=== PATIENT | female | born 1965 | race Caucasian/White ===

== ENCOUNTER → 2016-06-13 | Outpatient (CLI) | payer OTHER ==
[~2016-06-13] MED LIST: DIPH25TA4 PO; IBUP-1050 PO; NORE5TAB5 PO
--- NOTE | 2016-06-13 15:07 | MAMMOGRAPHY REPORT ---
BILATERAL DIGITAL SCREENING MAMMOGRAM TOMOSYNTHESIS WITH CAD: 06/13/2016 CLINICAL HISTORY: Routine screening. Patient has no complaints. TECHNIQUE: Breast tomosynthesis in addition to standard 2D mammography was performed. Current study was also evaluated with a Computer Aided Detection (CAD) system. COMPARISON: Comparison is made to exam dated: 03/25/2015 mammogram - [facility]. Prior outside mammograms dated 03/16/2014, 03/10/2013, 05/28/2011, 05/23/2009, 02/27/2008. BREAST COMPOSITION: The tissue of both breasts is heterogeneously dense, which may obscure small ma sses. FINDINGS: No suspicious masses, calcifications, or areas of architectural distortion are noted in e ither breast. There has been no significant interval change compared to prior exams. Asymmetries in the left superior breast are stable dating back to at least the 2007 and 2006 exams, and are theref ore benign and felt to represent normal fibroglandular tissue. IMPRESSION: ACR BI-RADS CATEGORY 2: BENIGN There is no mammographic evidence of malignancy. A 1 year screening mammogram is recommended. The p atient will receive written notification of the results. Approximately 10% of breast cancers are not detected with mammography. A negative mammographic repor t should not delay biopsy if a clinically suggestive mass is present. Nichol Sanchez M.D. /:06/13/2016 14:34:45 Claims Processor: Anastasia Lechuga, [facility] letter sent: Normal 1/2 BI-RADS Code: ACR BI-RADS Category 2: Benign
== END | disposition home or self-care (01) ==
LOC: C.MAMM 14:06
PROVIDERS: ATTEND Internal Medicine
DX: Z12.31 Encounter for screening mammogram for malignant neoplasm of breast (principal)

== ENCOUNTER → 2016-07-20 | Outpatient (CLI) | payer OTHER ==
[2016-07-20 09:39] LABS: BASO % 2.3 %; BASO ABS # 0.07 K/uL (0-0.2); COMPLETE YES; EOS % 4.3 %; HEMATOCRIT 38.3 % (37-47); LYMPH % 43.7 %; LYMPH ABS # 1.32 K/uL (1.2-3.4); MEAN CELL VOLUME 92.3 fL (80-100); MEAN CORPUSCULAR HEMOGLOBIN 32.3 pg (25-34); MEAN PLATELET VOLUME 11.3 fL (7.4-10.4); MONO % 9.6 %; NEUT % 40.1 %; PLATELET COUNT 238 K/uL (130-400); RED BLOOD COUNT 4.15 M/uL (4.2-5.4); WHITE BLOOD COUNT 3.02 K/uL (4.8-10.8)
[2016-07-20 10:11] LABS: ALB/GLOB RATIO 1.4 (0.9-2); ALT/SGPT 22 U/L (12-78); AST/SGOT 25 U/L (15-37); BLOOD UREA NITROGEN 14 mg/dl (7-18); BUN/CREATININE RATIO 16.8 (10-20); CALCIUM 9.6 mg/dl (8.5-10.1); CARBON DIOXIDE 28 mmol/L (21-32); CHLORIDE 104 mmol/L (98-107); CREATININE 0.85 mg/dl (0.60-1.20); GLUCOSE 82 mg/dl (70-99); POTASSIUM 4.1 mmol/L (3.5-5.1); SODIUM 139 mmol/L (136-145)
[2016-07-20 10:12] LABS: ALKALINE PHOSPHATASE 57 U/L (45-117); CHOLESTEROL 215 mg/dl (0-200); CHOLESTEROL/HDL RATIO 1.9; HDL CHOLESTEROL 111 mg/dl; LDL CHOLESTEROL CALCULATED 97 mg/dl; TRIGLYCERIDES 36 mg/dl (0-150); VERY LOW DENSITY LIPOPROT CALC 7 mg/dl
== END | disposition home or self-care (01) ==
LOC: C.LAB 07:01
PROVIDERS: ATTEND Internal Medicine
DX: R43.2 Parageusia (principal); Z13.220 Encounter for screening for lipoid disorders; R43.8 Other disturbances of smell and taste

== ENCOUNTER 2016-11-19 12:40 | Emergency (ER) | payer OTHER ==
[~2016-11-19] VITALS: Ht 165.1 cm; Wt 72.0 kg
[2016-11-19 12:51] VITALS: Ht 165.1 cm; Wt 72.0 kg
[2016-11-19] MEDS ORDERED: SODIUM CHLORIDE 0.9% 1000ML 1,000 ML IV STA (13:15)
[2016-11-19 13:48] LABS: BASO % 0.6 %; BASO ABS # 0.03 K/uL (0-0.2); COMPLETE YES; EOS % 1.7 %; HEMATOCRIT 34.9 % (37-47); IG% 0.2 %; LYMPH % 31.1 %; LYMPH ABS # 1.61 K/uL (1.2-3.4); MEAN CELL VOLUME 92.3 fL (80-100); MEAN CORPUSCULAR HEMOGLOBIN 30.7 pg (25-34); MEAN CORPUSCULAR HGB CONC 33.2 g/dl (32-36); MEAN PLATELET VOLUME 10.2 fL (7.4-10.4); MONO % 10.1 %; NEUT % 56.3 %; PLATELET COUNT 218 K/uL (130-400); RED BLOOD COUNT 3.78 M/uL (4.2-5.4); WHITE BLOOD COUNT 5.17 K/uL (4.8-10.8)
--- NOTE | 2016-11-19 13:51 | EMERGENCY ROOM VISIT NOTE ---
History First contact with patient: 12:59 Chief Complaint: VAGINAL BLEEDING Stated Complaint: HEAVY MENSTRUAL BLEEDING History of Present Illness The patient is a 51 year old female who presents to the Emergency Room with complaints of heavy vaginal bleeding. The patient states that she has had vaginal bleeding for the past 2 days which became heavier last night into this morning. She states that she thought she had completed menopause, as she has not had vaginal bleeding for 2 years. She does report having a light period last month, but this is the first bleeding she has had in 2 years. That lasted for 5-6 days. She states that she has been using tampons and pads and has been changing the pad almost every 15 minutes. She denies any abdominal pain/ cramping, urinary symptoms, lightheadedness or dizziness. She does not take any blood thinners. She denies any significant NEUROPSYCHOLOGY DIRECTOR history other than C- sections. She denies any family history of bleeding disorders but does report a family history of clotting disorder in her aunt. She states that she believes her mother has factor V Leiden trait. She typically sees Brooke Bazan [employer] [facility]. She called them today and was sent here for evaluation. Review of Systems A complete 10 point review of systems was reviewed with the patient with pertinent positives and negatives as per history of present illness. All else were negative. Social History Smoking Status: Never Smoker Current/Historical Medications Scheduled Norethindrone (Aygestin), 5 MG PO UD Physical Exam Vital Signs Date Time Temp Pulse Resp B/P (MAP) Pulse Ox O2 Delivery O2 Flow Rate FiO2 11/19/16 16:26 36.7 56 16 123/78 100 11/19/16 16:18 56 16 123/78 100 Room Air 11/19/16 15:35 36.7 56 16 130/70 100 Room Air 11/19/16 14:08 65 18 137/78 100 Room Air 11/19/16 12:51 36.7 73 18 134/73 100 Physical Exam VITALS: Vitals are noted on the nurse's note and reviewed by myself. Vital signs stable. GENERAL: This is a 51-year-old male, in no acute distress, nondiaphoretic, well- developed well-nourished. SKIN: The skin was normal in color without significant pallor. MOUTH: Mucous membranes moist. HEART: Regular rate and rhythm without murmurs gallops or rubs. LUNGS: Clear to auscultation bilaterally without wheezes, rales or rhonchi. ABDOMEN: Positive bowel sounds x 4. Soft, nontender to palpation. PELVIC: External genitalia unremarkable. There is a moderate amount of bleeding from the cervical os. No destructive lesions visualized. NEURO: Patient was alert and oriented to person place and time. Medical Decision & Procedures ER Provider Diagnostic Interpretation: PELVIC COMPLETE NON OB IMPRESSION: 1. Multiple uterine leiomyomas, most of which appear intramural. There is at least one however that appears submucosal. 2. Endometrium measures 1.0 cm, thickened in a postmenopausal patient. This can be correlated with tissue sampling. 3. Septated cystic lesions of the bilateral ovaries, largest on the right measuring up to 5.9 cm is seen without evidence of ovarian torsion. Follow-up is recommended to exclude epithelial neoplasm. Laboratory Results 11/19/16 13:30 Red Blood Count 3.78, Mean Corpuscular Volume 92.3, Mean Corpuscular Hemoglobin 30.7, Mean Corpuscular Hemoglobin Concent 33.2, Mean Platelet Volume 10.2, Neutrophils (%) (Auto) 56.3, Lymphocytes (%) (Auto) 31.1, Monocytes (%) (Auto) 10.1, Eosinophils (%) (Auto) 1.7, Basophils (%) (Auto) 0.6, Neutrophils # (Auto ) 2.91, Lymphocytes # (Auto) 1.61, Monocytes # (Auto) 0.52, Eosinophils # (Auto ) 0.09, Basophils # (Auto) 0.03 11/19/16 13:30 Test 11/19/16 13:30 White Blood Count 5.17 K/uL (4.8-10.8) Red Blood Count 3.78 M/uL (4.2-5.4) Hemoglobin 11.6 g/dL (12.0-16.0) Hematocrit 34.9 % (37-47) Mean Corpuscular Volume 92.3 fL (80-100) Mean Corpuscular Hemoglobin 30.7 pg (25-34) Mean Corpuscular Hemoglobin Concent 33.2 g/dl (32-36) Platelet Count 218 K/uL (130-400) Mean Platelet Volume 10.2 fL (7.4-10.4) Neutrophils (%) (Auto) 56.3 % Lymphocytes (%) (Auto) 31.1 % Monocytes (%) (Auto) 10.1 % Eosinophils (%) (Auto) 1.7 % Basophils (%) (Auto) 0.6 % Neutrophils # (Auto) 2.91 K/uL (1.4-6.5) Lymphocytes # (Auto) 1.61 K/uL (1.2-3.4) Monocytes # (Auto) 0.52 K/uL (0.11-0.59) Eosinophils # (Auto) 0.09 K/uL (0-0.5) Basophils # (Auto) 0.03 K/uL (0-0.2) RDW Standard Deviation 42.6 fL (36.4-46.3) RDW Coefficient of Variation 12.6 % (11.5-14.5) Immature Granulocyte % (Auto) 0.2 % Immature Granulocyte # (Auto) 0.01 K/uL (0.00-0.02) Prothrombin Time 11.1 SECONDS (9.0-12.0) Prothromb Time International Ratio 1.0 (0.9-1.1) Activated Partial Thromboplast Time 29.6 SECONDS (21.0-31.0) Partial Thromboplastin Ratio 1.1 Anion Gap 7.0 mmol/L (3-11) Est Creatinine Clear Calc Drug Dose 82.7 ml/min Estimated GFR () 98.9 Estimated GFR (Non- 85.4 BUN/Creatinine Ratio 21.9 (10-20) Calcium Level 9.1 mg/dl (8.5-10.1) Thyroid Stimulating Hormone (TSH) 1.420 uIu/ml (0.300-4.500) Human Chorionic Gonadotropin, Qual NEG (NEG) ED Course The patient was evaluated as above. Labs were drawn and IV access was obtained. Pelvic ultrasound was performed and read by radiology as above. Patient was reevaluated and findings were discussed. Case was discussed with Dr. Caba of [employer]SP[employer] EQU[employer]MENT [employer]. She recommended an Aygestin taper. Discharge instructions were reviewed with the patient. The patient verbalized understanding of my assessment and treatment plan and was discharged home in good condition. Medical Decision Differential diagnosis includes bleeding disorder, fibroids, menopause, among others. The patient is a 51-year-old female who presents today complaining of heavy vaginal bleeding. Pelvic exam did show a moderate amount of bleeding. Patient is not anemic. Coags are normal. Pelvic ultrasound did show multiple fibroids as well as possible ovarian cysts and a thickened endometrium. Case was discussed with Dr. Caba of [facility]QUIP[facility], who recommended an Aygestin taper. The patient will follow-up with TRANSPORTATION EQUIPMENT PAINTER in the office. She verbalized understanding of my assessment and treatment plan and was discharged home in good condition. She was instructed to return here for any worsening of her current condition or new/concerning symptoms. Medication Reconcilliation Current Medication List: was personally reviewed by me Blood Pressure Screening Patient's blood pressure: Normal blood pressure Impression Primary Impression: Abnormal vaginal bleeding Departure Information Dispostion Home / Self-Care Condition GOOD Prescriptions Norethindrone (Aygestin) 5 Mg Tab 5 MG PO UD, #10 TAB 10 mg 2 days, 7.5 mg 2 days, 5 mg 2 days, 2.5 mg 2 days. Prov: Patricia Cuevas ., MARINA 11/19/16 Referrals RV. Zuñiga MD (PCP) Patient Instructions My [facility] Additional Instructions Aygestin as prescribed. You will be taking 2 tablets daily for 2 days, 1.5 tablets daily for 2 days, 1 tablet daily for 2 days, then 0.5 tablet for 2 days. This will stop the vaginal bleeding. However, when you finish this medication you may begin to bleed lightly again. Follow-up with TRANSPORTATION EQUIPMENT PAINTER in the office. Return here for lightheadedness, dizziness, passing out, heavier bleeding or any other new/concerning symptoms.
[2016-11-19 14:00] LABS: PARTIAL THROMBOPLASTIN RATIO 1.1; PROTHROMBIN TIME (PATIENT) 11.1 SECONDS (9.0-12.0)
[2016-11-19 14:04] LABS: BUN/CREATININE RATIO 21.9 (10-20); CALCIUM 9.1 mg/dl (8.5-10.1); CREATININE 0.8 mg/dl (0.60-1.20); POTASSIUM 3.6 mmol/L (3.5-5.1)
[2016-11-19 14:14] LABS: THYROID STIMULATING HORMONE 1.42 uIu/ml (0.300-4.500)
[2016-11-19 14:30] LABS: PREG INTERNAL NEGATIVE QC NEG CLEAR BACKGROUND; PREG INTERNAL POSITIVE QC POS CONTROL LINE
--- NOTE | 2016-11-19 15:46 | DIAGNOSTIC IMAGING REPORT ---
PELVIC COMPLETE NON OB HISTORY: 51 years-old Female acute heavy vaginal bleeding . The patient is postmenopausal. History of prior . COMPARISON: None available TECHNIQUE: Multiple real-time sonographic images of the deep pelvic structures were obtained transabdominally and transvaginally assessing grayscale appearance, color and spectral flow. FINDINGS: Transabdominal: Anteflexed uterus measures 12.1 x 5.9 x 7.5 cm. Endometrium measures 1.2 cm. There are several ill-defined hypoechoic structures involving uterus suggesting leiomyomas. One lesion is seen, 3.3 x 2.5 cm which may demonstrate submucosal component. Subserosal appearing lesion is seen, 2.2 x 2.5 cm. Additional similar appearing structure which appears intramural is seen within the region of the lower uterine segment, 2.2 x 3.0 x 2.5 cm. Cystic structure within the region of the right ovary is seen, 8.4 x 5.3 x 7.0 cm without internal vascularity. Arterial inflow and venous outflow is documented within the right ovary. Mildly complex cystic-appearing structures also seen within the left ovary, 3.3 x 4.5 x 4.6 cm . Arterial and flow venous outflow was documented within the left ovary. Transvaginal: Uterus measures 10.2 x 5.7 x 7.3 cm. Endometrium measures 1.0 cm without definite mass. Nabothian cysts are noted. scar is seen. Multiple fibroids are seen including intramural fibroid measuring 2.8 x 2.8 cm near the fundus. Posterior fundal uterus lateral myoma measures 2.7 x 2.5 cm which appears intramural. Large cystic lesion of the right adnexum is seen containing internal debris, 5.9 x 5.2 x 5.0 cm. No definite flow or mural nodularity seen within the cystic lesion, however there are some thin internal septations. Right ovary measures 6.5 x 6.3 x 5.7 cm. Left ovary measures 4.8 x 4.2 x 4.0 cm. Septated cystic lesion within the left ovary are seen, 4.1 x 3.7 x 3.47 m. Arterial inflow is documented within the left ovary. There is minimal free pelvic fluid, nonspecific. IMPRESSION: 1. Multiple uterine leiomyomas, most of which appear intramural. There is at least one however that appears submucosal. 2. Endometrium measures 1.0 cm, thickened in a postmenopausal patient. This can be correlated with tissue sampling. 3. Septated cystic lesions of the bilateral ovaries, largest on the right measuring up to 5.9 cm is seen without evidence of ovarian torsion. Follow-up is recommended to exclude epithelial neoplasm. The above report was generated using voice recognition software. It may contain grammatical, syntax or spelling errors. Electronically signed by: Ryan Shoemaker M.D. 11/19/2016 3:44 PM Dictated Date/Time: 11/19/2016 3:33 PM
[2016-11-19] MEDS ORDERED: NORE5TAB5 PO (16:19)
[2016-11-19 16:26] VITALS: BP 123/78; PULSE 56; TEMP 36.7; O2SAT 100
[2017-01-09] MEDS ORDERED: DIPH25TA4 PO (13:42)
[2017-01-09] MEDS ORDERED: IBUP-1050 PO (13:42)
== END 2016-11-19 16:24 | disposition home or self-care (01) ==
LOC: C.EDB 12:41 → C.EDC 16:24
DX: N93.9 Abnormal uterine and vaginal bleeding, unspecified (principal)

== ENCOUNTER → 2016-11-23 | Outpatient (CLI) | payer OTHER | END | disposition home or self-care (01) | LOC: C.LAB1850 15:37 | PROVIDERS: ATTEND Obstetrics & Gynecology | DX: N95.0 Postmenopausal bleeding (principal) ==

== ENCOUNTER → 2017-01-17 | Day surgery (SDC) | payer OTHER ==
[2017-01-02 11:22] VITALS: BMI 25.0
[~2017-01-17] VITALS: Ht 165.1 cm; Wt 70.5 kg
[~2017-01-17] MED LIST changes: +LIDOCAINE HCL 2% 2 ML VIAL (20MG/ML) ONE; +MIDAZOLAM HCL 1 MG/ML 2ML VIAL ONE; -NORE5TAB5 PO; +PROPOFOL IV EMULSION 10 MG/ML 20 ML VIAL IV ONE; +SODIUM CHLORIDE 0.9% 500ML 500 ML IV ONE
[2017-01-17 12:10] VITALS: Ht 165.1 cm; Wt 70.5 kg
--- NOTE | 2017-01-17 12:32 | Endo History and Physical ---
History & Physical Date of Service: Jan 17, 2017. Chief Complaint: SCREENING Referring Physician: DR MORA History of Present Illness 51 yo CF who presents for screening colonoscopy. Past Surgical History Hx Cardiac Surgery: No Hx Internal Defibrillator: No Hx Pacemaker: No Hx Abdominal Surgery: Yes ( X2) Hx of Implantable Prosthesis: No Hx Post-Op Nausea and Vomiting: Yes Hx Cancer Surgery: No Hx Thoracic Surgery: No Hx Orthopedic: No Hx Urinary Tract Surgery: No Family History IBD Social History Smoking Status: Never Smoker Hx Substance Use: No Hx Alcohol Use: Yes (OCCASIONAL) Allergies Coded Allergies: No Known Allergies (Unverified , 01/17/17) Current Medications Reported Home Medications Medications Dose Route/Sig Max Daily Dose Days Date Category Advil (Ibuprofen) 200 Mg Tab 200-600 Mg PO Q4H PRN 01/09/17 Reported Sominex (Diphenhydramine Hcl (Sleep)) 25 Mg Tab 0.5 Tab PO HS PRN 01/09/17 Reported Vital Signs Weight (Kilograms): 70.45 Height (Feet): 5 Height (Inches): 5 Date Time Temp Pulse Resp B/P (MAP) Pulse Ox O2 Delivery O2 Flow Rate FiO2 01/17/17 12:18 36.5 55 16 123/74 (90) 100 Room Air Physical Exam General Appearance: WD/WN, no apparent distress Respiratory/Chest: Auscultation: breath sounds normal Cardiovascular: Heart Auscultation: RRR Abdomen: Bowel Sounds: normal Inspection & Palpation: soft, non-distended, no tenderness, guarding & rebound Assessment and Plan Assessment: 51 yo CF who presents for screening colonoscopy. Plan: Proceed with colonoscopy.
--- NOTE | 2017-01-17 13:14 | Discharge Instructions ---
Endoscopy Patient Instructions Date / Procedure(s) Performed Jan 17, 2017. Colonoscopy Allergy Information Coded Allergies: No Known Allergies (Unverified , 01/17/17) Discharge Date / Findings Jan 17, 2017. Internal hemorrhoids Medication Instructions OK to resume all medications today as prescribed Reported Home Medications Medications Dose Route/Sig Max Daily Dose Days Date Category Advil (Ibuprofen) 200 Mg Tab 200-600 Mg PO Q4H PRN 01/09/17 Reported Sominex (Diphenhydramine Hcl (Sleep)) 25 Mg Tab 0.5 Tab PO HS PRN 01/09/17 Reported Provider Instructions Activity Restrictions - No exercising or heavy lifting for 24 hours. - Do not drink alcohol the day of the procedure. - Do not drive a car or operate machinery until the day after the procedure. - Do not make any important decisions or sign important papers in 24 hours after the procedure. Following Day: - Return to full activity which may include returning to work/school. Diet Start your diet with liquids and light foods (jello, soup, juice, toast). Then eat your usual diet if not nauseated. Treatment For Common After Affects For mild abdominal pain, bloating, or excessive gas: - Rest - Eat lightly - Lie on right side Follow-Up Information Follow-up with DR MORA as scheduled Anesthesia Information What You Should Know You have had a procedure that required some medicine to reduce anxiety and discomfort. This treatment is called moderate sedation. After receiving the treatment, you may be sleepy, but you will be able to breathe on your own. The effects of the treatment may last for several hours. Follow these instructions along with Activity/Diet recommendations noted above: * Do NOT do anything where dizziness or clumsiness would be dangerous. * Rest quietly at home today, then you can be up and about tomorrow. * Have a responsible person stay with you the rest of today. * You may have had an I.V. today. If so, you may take the dressing off later today. Recommendations Call your doctor if: * Trouble breathing * Continuous vomiting for more than 24 hours * Temperature above 101 degrees * Severe abdominal pain or bloating * Pain not relieved by pain medicine ordered * There is increased drainage or redness from any incision * A large amount of rectal bleeding greater than 2-3 tablespoons. (If you had a polyp/s removed or have hemorrhoids, a small amount of blood - from the rectum is to be expected.) * You have any unanswered questions or concerns. IN THE EVENT OF A SERIOUS EMERGENCY, GO TO THE NEAREST EMERGENCY ROOM Your discharge instructions were prepared by provider Rob Cid. Patient Instructions Signature Page Talia Louise Patient (or Guardian) Signature/Date: I have read and understand the instructions given to me by my caregivers. Caregiver/RN/Doctor Signature/Date: The above-named patient and/or guardian has received patient instructions on this date. + Original Patient Signature Page (only) stays with chart. Please make copy for patient.
--- NOTE | 2017-01-17 13:17 | Anesthesiology Progress Note ---
Anesthesia Post Op Note Date & Time Jan 17, 2017 at 13:17 Vital Signs Pain Intensity: 0 Vital Signs Past 12 Hours Date Time Temp Pulse Resp B/P (MAP) Pulse Ox O2 Delivery O2 Flow Rate FiO2 01/17/17 13:05 63 20 117/65 (82) 100 Room Air 01/17/17 12:18 36.5 55 16 123/74 (90) 100 Room Air Notes Mental Status: alert / awake / arousable, participated in evaluation Pt Amnestic to Procedure: Yes Nausea / Vomiting: adequately controlled Pain: adequately controlled Airway Patency, RR, SpO2: stable & adequate BP & HR: stable & adequate Hydration State: stable & adequate Anesthetic Complications: no major complications apparent
--- NOTE | 2017-01-17 13:21 | GI REPORT ---
Procedure Date: 01/17/2017 12:25 PM THIS REPORT HAS BEEN AMENDED Addendum Number: 1 Addendum Date: 01/17/2017 1:26:18 PM An error was made when placing findings on this exam: The only finding on this exam was non-bleeding internal hemorrhoids. There was no evidence of diverticulosis. There were no random colon biopsies or stool studies collected. A repeat colonoscopy should be performed in 10 years for surveillance purposes. Procedure: Colonoscopy Indications: Screening for colorectal malignant neoplasm Medicines: Monitored Anesthesia Care Complications: No immediate complications. Estimated Blood Loss: Estimated blood loss: none. Procedure: Pre-Anesthesia Assessment: - Prior to the procedure, a History and Physical was performed, and patient medications and allergies were reviewed. The patient's tolerance of previous anesthesia was also reviewed. The risks and benefits of the procedure and the sedation options and risks were discussed with the patient. All questions were answered, and informed consent was obtained. Prior Anticoagulants: The patient has taken no previous anticoagulant or antiplatelet agents. ASA Grade Assessment: II - A patient with mild systemic disease. After reviewing the risks and benefits, the patient was deemed in satisfactory condition to undergo the procedure. After I obtained informed consent, the scope was passed under direct vision. Throughout the procedure, the patient's blood pressure, pulse, and oxygen saturations were monitored continuously. The scope was introduced through the anus and advanced to the terminal ileum. The colonoscopy was performed without difficulty. The patient tolerated the procedure well. The quality of the bowel preparation was good. The terminal ileum, ileocecal valve, appendiceal orifice, and rectum were photographed. Findings: Multiple small-mouthed diverticula were found in the sigmoid colon. Non-bleeding internal hemorrhoids were found during retroflexion. The hemorrhoids were small. Several random biopsies were obtained with cold forceps for histology in the entire colon. Fluid aspiration for cytology was performed in the entire colon. Impression: - Diverticulosis in the sigmoid colon. - Non-bleeding internal hemorrhoids. - Several random biopsies were obtained in the entire colon. - Fluid aspiration was performed. Recommendation: - Resume previous diet. - Continue present medications. - Repeat colonoscopy for surveillance based on pathology results. - Return to primary care physician as previously scheduled. Rob Cid DO 01/17/2017 1:21:17 PM This report has been signed electronically. Note Initiated On: 01/17/2017 12:25 PM I attest to the content of the Intraoperative Record and orders documented therein, exceptions below Rob Cid, 01/17/2017 1:27:43 PM This report has been signed electronically.
[2017-01-17 13:35] VITALS: BP 145/71; PULSE 58; O2SAT 100
== END | disposition home or self-care (01) ==
LOC: C.GI 11:41
PROVIDERS: ATTEND Internal Medicine
DX: Z12.11 Encounter for screening for malignant neoplasm of colon (principal); K57.30 Diverticulosis of large intestine without perforation or abscess without bleeding; K64.8 Other hemorrhoids

== ENCOUNTER 2017-01-21 07:08 | Day surgery (SDC) | payer OTHER ==
[2017-01-09 13:28] VITALS: BMI 26.0
--- NOTE | 2017-01-09 13:52 | PAT Medication Instructions ---
Service Date Jan 09, 2017. Current Home Medication List Diphenhydramine Hcl (Sleep) (Sominex), 0.5 TAB PO HS PRN for Sleep Ibuprofen (Advil), 200-600 MG PO Q4H PRN for Pain Medication Instructions For Your Scheduled Surgery - Check with surgeon for instructions: Ibuprofen (Advil), 200-600 MG PO Q4H PRN for Pain - Take the following medications as scheduled the night before surgery: Diphenhydramine Hcl (Sleep) (Sominex), 0.5 TAB PO HS PRN for Sleep Nothing to eat or drink after midnight If you have any questions please call us at [phone] or [phone] or [phone]
[2017-01-09 14:36] LABS: BASO % 0.6 %; BASO ABS # 0.03 K/uL (0-0.2); COMPLETE YES; EOS % 3.2 %; HEMATOCRIT 34.8 % (37-47); IG% 0.2 %; LYMPH % 29.5 %; LYMPH ABS # 1.58 K/uL (1.2-3.4); MEAN CORPUSCULAR HEMOGLOBIN 31.8 pg (25-34); MEAN CORPUSCULAR HGB CONC 34.2 g/dl (32-36); MEAN PLATELET VOLUME 10.2 fL (7.4-10.4); MONO % 6.3 %; NEUT % 60.2 %; PLATELET COUNT 231 K/uL (130-400); RED BLOOD COUNT 3.74 M/uL (4.2-5.4); WHITE BLOOD COUNT 5.36 K/uL (4.8-10.8)
[~2017-01-21] VITALS: Ht 165.1 cm; Wt 71.1 kg
[~2017-01-21 07:08] MED LIST changes: +CEFAZOLIN 2000 MG/60 ML D5W 50 ML IV SCH; +LACTATED RINGER'S 1000ML 1,000 ML IV SCH; -LIDOCAINE HCL 2% 2 ML VIAL (20MG/ML) ONE; -MIDAZOLAM HCL 1 MG/ML 2ML VIAL ONE; -PROPOFOL IV EMULSION 10 MG/ML 20 ML VIAL IV ONE; -SODIUM CHLORIDE 0.9% 500ML 500 ML IV ONE
[2017-01-21] MEDS ORDERED: FENTANYL CITRATE INJ 50 MCG/1 ML 2 ML VIAL ONE ×2 (07:23→09:56)
[2017-01-21] MEDS ORDERED: MIDAZOLAM HCL 1 MG/ML 2ML VIAL ONE (07:23)
[2017-01-21 07:56] VITALS: BP 137/67; PULSE 58; TEMP 36.6; O2SAT 100; Ht 165.1 cm; Wt 71.1 kg
[2017-01-21] MEDS ORDERED: SCOPOLAMINE 1.5 MG TDSY TD ONE (08:26)
--- NOTE | 2017-01-21 09:25 | History & Physical Bridge Note ---
H&P Re-Evaluation Bridge Note: I have examined the patient, reviewed the History & Physical and in the interval since the performance of the History & Physical I have noted the following changes of clinical significance: No changes noted
[2017-01-21] MEDS ORDERED: DEXAMETHASONE SOD INJ 4 MG/ML VIAL ONE (09:52)
[2017-01-21] MEDS ORDERED: PROPOFOL IV EMULSION 10 MG/ML 20 ML VIAL IV ONE (09:52)
[2017-01-21] MEDS ORDERED: GLYCOPYRROLATE INJ 0.2 MG/ML VIAL ONE (09:52)
[2017-01-21] MEDS ORDERED: LIDOCAINE HCL 2% 2 ML VIAL (20MG/ML) ONE (09:52)
[2017-01-21] MEDS ORDERED: NEOSTIGMINE METHYLSULFATE 5 MG/5 ML SYR ONE (09:52)
[2017-01-21] MEDS ORDERED: ROCURONIUM BROMIDE 10 MG/ML 5 ML VIAL IV ONE (09:52)
[2017-01-21] MEDS ORDERED: ONDANSETRON INJ 2 MG/ML 2 ML VIAL ONE (09:52)
[2017-01-21] MEDS ORDERED: SODIUM CHLORIDE 0.9% 1000ML 1,000 ML IV SCH (10:51)
--- NOTE | 2017-01-21 10:55 | Discharge Instructions ---
Discharge Instructions Date of Service Jan 21, 2017. Visit Reason for Visit: Abnormal Uterine Bleeding, Ovarian Cyst Discharge Discharge Diagnosis / Problem: Right paratubal cyst, polypoid endometrium Discharge Goals Goal(s): Specific goals Activity Recommendations Activity Limitations: per Instructions/Follow-up section Anesthesia . Post Anesthesia Instructions: If you have had General Anesthesia or IV Sedation: * Do not drive today. * Resume driving when surgeon permits. * Do not make important decisions or sign legal documents today. * Call surgeon for: 1. Temperature elevations greater than 101 degrees F. 2. Uncontrollable pain. 3. Excessive bleeding. 4. Persistent nausea and vomiting. 5. Medication intolerance (nausea, vomiting or rash). * For nausea and vomiting use only clear liquids such as: tea, soda, bouillon until nausea subsides, then gradually increase diet as tolerated. * If you have any concerns or questions, call your surgeon's office. If physician is unavailable and it is an emergency, call 911 or go to the nearest emergency room. . Instructions / Follow-Up Instructions / Follow-Up SPECIAL CARE INSTRUCTIONS: Special Diet: * Mild nausea may occur in the immediate post-operative period. * Take clear liquids such as tea, cola or bouillon until all nausea has subsided; you may then resume your normal diet. Special Care: * Light bleeding and vaginal spotting can last from a few days to 3-4 weeks. Call your doctor if bleeding becomes heavier than the heaviest part of your period. * Check your temperature twice a day for one week. If it goes above 100.4 degrees Fahrenheit (38.0 Celsius), notify your doctor. ACTIVITY RECOMMENDATIONS: * Rest the first 2-3 days. You should be back to your normal activity levels by day 3. * No heavy lifting for 2 weeks. * You may shower the next day. * Do not drive anytime that you are taking narcotic pain medicines. * Avoid tampons, douching, pools, hot tubs or intercourse for 2 weeks. RETURN TO SCHOOL/WORK: * May return to school or work after 2-3 days. DIET: Nausea may occur in the immediate post-operative period. If so, take clear liquids such as tea, bouillon, apple juice until all nausea has subsided, then resume usual diet. MEDICATIONS: Resume previous medications unless instructed otherwise by your surgeon. Ibuprofen 200mg 2-3 tablets every 4-6 hours as needed -- OR -- Aleve 2 tablets every 8-12 hours as needed for post-operative discomfort Medications are over the counter. Tylenol may be used if above medications are contraindicated or not preferred. Medication should be taken with food or milk. Do not take on an empty stomach. SPECIAL CARE INSTRUCTIONS: * Check temperature twice daily for one week. report any elevation over 101 degrees. * You may experience some vagina spotting and/or bleeding. This is normal for 1 -2 weeks and should not be heavier than a normal period. If it is unusual in amount, call your physician. * Post-operative discomfort may consist of a sore throat, a "bloated" feeling and pain in the shoulders. these are normal symptoms, which usually only last for 2-3 days. FOLLOW UP VISIT: Call your doctor's office for a post-operative visit if not already scheduled. Diet Recommendations Recommended Home Diet: resume previous diet Procedures Procedures Performed: Hysteroscopy Dilation and Curettage, Polypectomy; Laparoscopic right salpingectomy Pending Studies Studies pending at discharge: no Medical Emergencies . Who to Call and When: Medical Emergencies: If at any time you feel your situation is an emergency, please call 911 immediately. . Non-Emergent Contact Non-Emergency issues call your: Primary Care Provider . . "Provider Documentation" section prepared by Jennifer Caba. .
--- NOTE | 2017-01-21 10:56 | [facility] Post Operative Brief Note ---
Immediate Operative Summary Operative Date Jan 21, 2017. Pre-Operative Diagnosis Abnormal uterine bleeding; right ovarian cyst Post-Operative Diagnosis Abnormal uterine bleeding; right paratubal cyst Procedure(s) Performed Hysteroscopy Dilation and Curettage, Polypectomy; Laparoscopic right salpingectomy Surgeon Dr. Caba Traffic Signal Technician Surgeon(s) Dr. Leonard (resident) Estimated Blood Loss 10 cc Findings Normal ovaries bilaterally. Small fundal fibroid. Large (approx 6cm) Right Paratubal cyst with straw-colored simple fluid filling. Polypoid endometrium. Specimens A: endometrial curettings B: right fallopian tube Complication(s) None Disposition Recovery Room / PACU
[2017-01-21] MEDS ORDERED: ONDANSETRON INJ 2 MG/ML 2 ML VIAL IV PRN ×2 (11:00)
[2017-01-21] MEDS ORDERED: PROMETHAZINE HCL INJ 12.5 MG in SODIUM CHLORIDE 0.9% 50ML 50 ML IV PRN (11:00)
[2017-01-21] MEDS ORDERED: LABETALOL HCL IV 5 MG/ML 20ML IV PRN (11:00)
[2017-01-21] MEDS ORDERED: NALOXONE HCL 0.4 MG/1 ML VIAL/CARP IV PRN (11:00)
[2017-01-21] MEDS ORDERED: KETOROLAC TROMETHAMINE 30 MG/ML VIAL IV. PRN (11:00)
[2017-01-21] MEDS ORDERED: EpHEDrine SULFATE INJ 50 MG/ML AMP IV PRN (11:00)
[2017-01-21] MEDS ORDERED: PROMETHAZINE HCL INJ 25 MG in SODIUM CHLORIDE 0.9% 50ML 50 ML IV PRN (11:00)
[2017-01-21] MEDS ORDERED: FLUMAZENIL 0.1 MG/1 ML 10 ML VIAL IV PRN (11:00)
[2017-01-21] MEDS ORDERED: IBUPROFEN 600 MG TAB PO PRN (11:00)
[2017-01-21] MEDS ORDERED: ATROPINE SULFATE 0.1 MG/ML 5ML SYR IV PRN (11:00)
[2017-01-21] MEDS ORDERED: OXYCODONE/ACETAMINOPHEN 5-325 TAB PO PRN ×2 (11:00)
[2017-01-21] MEDS: HYDROmorphone INJ 1 MG/ML SYR IV PRN ×2 (11:14→11:20)
[2017-01-21 11:35] VITALS: TEMP 36.3
--- NOTE | 2017-01-21 11:44 | Anesthesiology Progress Note ---
Anesthesia Post Op Note Date & Time Jan 21, 2017 at 11:43 Vital Signs Pain Intensity: 3 Vital Signs Past 12 Hours Date Time Temp Pulse Resp B/P (MAP) Pulse Ox O2 Delivery O2 Flow Rate FiO2 01/21/17 11:35 36.3 49 16 123/71 98 Room Air 01/21/17 11:25 36.3 49 16 126/75 100 Room Air 01/21/17 11:15 52 16 123/72 100 Room Air 01/21/17 11:05 57 16 122/51 100 Room Air 01/21/17 10:55 61 16 101/70 100 Oxymask 10 01/21/17 10:45 36.3 60 16 126/86 100 Oxymask 10 01/21/17 07:56 36.6 58 20 137/67 (90) 100 Room Air Notes Mental Status: alert / awake / arousable, participated in evaluation Pt Amnestic to Procedure: Yes Nausea / Vomiting: adequately controlled Pain: adequately controlled Airway Patency, RR, SpO2: stable & adequate BP & HR: stable & adequate Hydration State: stable & adequate Anesthetic Complications: no major complications apparent
[2017-01-21 11:49] VITALS: BP 108/64; PULSE 48; O2SAT 100
[2017-01-21 12:19] VITALS: BP 116/60; PULSE 50; O2SAT 100
[2017-01-21 12:49] VITALS: BP 112/60; PULSE 58; O2SAT 100
--- NOTE | 2017-01-21 22:44 | OPERATIVE REPORT ---
DATE OF OPERATION: 01/21/2017 PREOPERATIVE DIAGNOSIS: Abnormal uterine bleeding with thickened endometrium and right ovarian cyst. POSTOPERATIVE DIAGNOSIS: Abnormal uterine bleeding with thickened endometrium and right paratubal cyst. PROCEDURE PERFORMED: D&C, hysteroscopy, polypectomy and laparoscopic right salpingectomy. SURGEON: Dr. Caba. FOREST LOGISTICS MANAGER: Resident. ESTIMATED BLOOD LOSS: 10 mL for overall case. FINDINGS: Abdominal findings included normal ovaries bilaterally, a small fundal fibroid and a large approximately 6 cm right paratubal cyst with a filling of straw-colored fluid. On hysteroscopy, a 9 cm cavity depth with a polypoid endometrium and ostia seen bilaterally. SPECIMENS: Include right fallopian tube and endometrial curettings with polyps included COMPLICATIONS: None. DISPOSITION: Stable to recovery room. DESCRIPTION: Talia was placed on the table in the dorsal lithotomy position, prepped and draped in standard sterile fashion and a hard time-out was taken prior to proceeding. Vaginally, she was prepped with a Kurtz placement and an acorn uterine manipulator. The full attention was then turned to the abdomen. An umbilical entry point was made in an optical manner without complication. The patient was then placed in deep Trendelenburg position and under direct visualization, right and left lower quadrant ports were established. There was immediately evident a large bluish colored distended cyst in the right adnexa. On close examination, it was found that the bilateral ovaries were normal. The left fallopian tube was normal; however, the right fallopian tube was directly overlying this cyst which appeared to be in fact a paratubal or peritoneal cyst associated with the right fallopian tube. The uterus was relatively normal with a small fundal fibroid that was indeed visible. Photography of the pelvis was done and then the dissection began with elevating the right fallopian tube and the cyst. The fallopian tube was divided from the uterine cornu and then dissection proceeded across the mesosalpinx, ultimately the right fallopian tube and cyst from the patient. The detached tube and cyst were then placed inside an EndoCatch bag which was brought out through the umbilicus. While the bag was opened to the exterior, the tissue was grasped with a Iman clamp and the cyst was lanced using a scalpel in order to drain and decompress. Simple straw colored fluid was encountered. This was removed via suction and there were no spillage of cyst contents into the patient's abdomen. Once the tissue decompressed, it was easily removed from the bag and then the bag itself was removed from the patient's body. Laparoscopy was then again performed to survey the working site, which was found to be hemostatic. At this point, the ports were removed. The patient's gas was allowed to escape the body and the port sites were then closed using a UR-6 at the umbilicus at the fascial layer and 4-0 Monocryl at all sites with Dermabond dressing then being applied. The second portion of the procedure, namely the hysteroscopy was then begun. Attention was moved down to the vaginal area, where the acorn manipulator was removed. Speculum was reintroduced to the vagina allowing visualization of the cervix. The cervix and uterus were sounded to 9 cm depth. The cervix was then serially dilated to 19-Kittitian. A 5 mm hysteroscope was then placed to the fundus, where a polypoid endometrium was seen in an otherwise relatively normal endometrial cavity with ostia visualized bilaterally. The scope was withdrawn and sharp curette was used to curette all zhu of the uterus until a good cry was felt. Several significant polypoid appearing chunks of tissue were retrieved and these were included with the endometrial curettings that were sent to pathology. The scope was then reintroduced and the zhu of the uterus were seen to have been curetted smooth. The endometrial cavity had been restored to a relatively normal shape and the procedure was then brought to completion. All instruments were removed. The patient was noted to have produced 500 mL of clear yellow urine. The Kurtz was removed and the patient was then transferred in stable condition to recovery. I attest to the content of the Intraoperative Record and any orders documented therein. Any exceptions are noted below. MTDD
== END 2017-01-21 12:54 | disposition home or self-care (01) ==
LOC: C.ACU 07:08
PROVIDERS: ATTEND Obstetrics & Gynecology
DX: N93.8 Other specified abnormal uterine and vaginal bleeding (principal); N84.0 Polyp of corpus uteri; N83.8 Other noninflammatory disorders of ovary, fallopian tube and broad ligament; Z79.899 Other long term (current) drug therapy

== ENCOUNTER → 2017-06-17 | Outpatient (CLI) | payer OTHER ==
[~2017-06-17] MED LIST changes: -CEFAZOLIN 2000 MG/60 ML D5W 50 ML IV SCH; -LACTATED RINGER'S 1000ML 1,000 ML IV SCH
--- NOTE | 2017-06-18 15:25 | MAMMOGRAPHY REPORT ---
BILATERAL DIGITAL SCREENING MAMMOGRAM TOMOSYNTHESIS WITH CAD: 06/17/2017 CLINICAL HISTORY: Routine screening. Patient has no complaints. TECHNIQUE: Breast tomosynthesis in addition to standard 2D mammography was performed. Current study was also evaluated with a Computer Aided Detection (CAD) system. COMPARISON: Comparison is made to exams dated: 06/13/2016 mammogram and 03/25/2015 mammogram - [facility]. BREAST COMPOSITION: The tissue of both breasts is heterogeneously dense, which may obscure small mas ses. FINDINGS: There are stable asymmetries in the left breast. No new suspicious mass, architectural dis tortion or cluster of microcalcifications is seen. IMPRESSION: ACR BI-RADS CATEGORY 1: NEGATIVE There is no mammographic evidence of malignancy. A 1 year screening mammogram is recommended. The pa tient will receive written notification of the results. Approximately 10% of breast cancers are not detected with mammography. A negative mammographic report should not delay biopsy if a clinically suggestive mass is present. Indiana Dugan M.D. ay/:06/17/2017 16:48:40 Benefits Clerk: Noemi CASTELLANO(R)(Antonio), [facility] letter sent: Normal 1/2 BI-RADS Code: ACR BI-RADS Category 1: Negative
== END ==
LOC: C.MAMM 14:17
PROVIDERS: ATTEND Internal Medicine
DX: Z12.31 Encounter for screening mammogram for malignant neoplasm of breast (principal)

== ENCOUNTER → 2017-08-15 | Outpatient (CLI) | payer OTHER | END | disposition home or self-care (01) | LOC: C.PATHSPEC 17:55 | PROVIDERS: ATTEND Physician Assistant | DX: D22.5 Melanocytic nevi of trunk (principal) ==

== ENCOUNTER → 2017-12-03 | Outpatient (CLI) | payer OTHER | END | disposition home or self-care (01) | LOC: C.LABBFT 07:17 | PROVIDERS: ATTEND Internal Medicine | DX: Z00.00 Encounter for general adult medical examination without abnormal findings (principal) ==